=== PATIENT | female | born 1945 ===

== ENCOUNTER 2018-10-07 10:47 | Outpatient (CLI) | payer OTHER | END 2018-10-07 11:03 | disposition home or self-care (01) | LOC: RAD 10:47 | DX: R07.89 Other chest pain (principal); Z01.818 Encounter for other preprocedural examination ==

== ENCOUNTER 2018-10-07 11:21 | Outpatient (CLI) | payer OTHER | END 2018-10-07 12:45 | disposition home or self-care (01) | LOC: EKG 11:21 | DX: I10 Essential (primary) hypertension (principal) ==